=== PATIENT | female | born 1975 | race Two or more races ===

== ENCOUNTER 2024-07-13 18:48 | Emergency (ER) | payer SELFPAY ==
[~2024-07-13] VITALS: Ht 165.1 cm; Wt 70.3 kg
[2024-07-13] MEDS: HYDROcodone-ACET 5/325MG TAB PO ONE (19:26)
[2024-07-13 19:28] VITALS: TEMP 98.7
[2024-07-13] MEDS: KETOROLAC TROMETH 60MG/2ML VIAL IM ONE (19:51)
[2024-07-13 20:21] VITALS: BP 118/70; PULSE 83; RESP 16; O2SAT 98
[2024-07-13] MEDS ORDERED: IBUP-1456 PO (20:25)
[2024-07-13] MEDS ORDERED: METH-1181 PO (20:25)
== END 2024-07-13 20:44 | disposition home or self-care (01) ==
LOC: ER 18:48
DX: S16.1XXA Strain of muscle, fascia and tendon at neck level, initial encounter (principal); S46.812A Strain of other muscles, fascia and tendons at shoulder and upper arm level, left arm, initial encounter; S39.012A Strain of muscle, fascia and tendon of lower back, initial encounter; S96.812A Strain of other specified muscles and tendons at ankle and foot level, left foot, initial encounter; Y08.89XA Assault by other specified means, initial encounter; Y93.89 Activity, other specified; Y92.89 Other specified places as the place of occurrence of the external cause; Y99.8 Other external cause status
CPT/HCPCS: 72040; 72100; 73030; 73610; 96372; 99284; J1885

== ENCOUNTER 2025-05-19 17:04 | Emergency (ER) | payer MEDICAID, OTHER ==
[~2025-05-19] VITALS: Ht 162.6 cm; Wt 78.5 kg
[~2025-05-19 17:04] MED LIST: IBUP-1456 PO; METH-1181 PO
[2025-05-19 17:05] VITALS: BP 156/98; PULSE 80; RESP 20; TEMP 98; O2SAT 98
[2025-05-19] MEDS ORDERED: SODIUM CHLORIDE 0.9% 1,000 ML IV ONE (18:15)
[2025-05-19] MEDS ORDERED: diphenhdrAMINE HCL 50 MG/1 ML VL IV ONE (18:15)
[2025-05-19] MEDS ORDERED: PROCHLORPERAZINE EDISYLATE 5 MG/ML 2ML VIAL IV ONE (18:15)
[2025-05-19] MEDS ORDERED: ONDANSETRON HCL 4 MG/2 ML VIAL IV ONE (18:15)
[2025-05-19] MEDS ORDERED: KETOROLAC TROMETH 30 MG/ML 1ML VIAL IV ONE (18:15)
--- NOTE | 2025-05-19 18:47 | ED.PDOC ---
HPI (NEURO) HPI Comments 50y F who presents to the ED for chief complaint of headache. Pt states she has been having headache for the past 30 minutes. Pt states she has history of migraines and states it feels the same whenever she gets migraines in the past. Pt has also been having associated nasuea, dizziness and associated light sensitivity. Pt otherwise has noted BP of 156/98 with otherwise stable vitals. Pt is alert and oriented x 4. Not thunderclap in onset. Not worst headache of life. No focal numbness or weakness. No other complaints. Chief Complaint: Headache Time Seen by MD: 18:30 Reviewed Notes: Medications, Allergies Information Source: Patient, Spouse Mode of Arrival: Ambulatory Brought in by: spouse Past Medical History Past Medical History (Other): migraines Surgical History: Denies all surgeries PRODUCT DEVELOPMENT MANAGER History: No Pertinent PRODUCT DEVELOPMENT MANAGER History Family History Family History: Reviewed,noncontributory to illness Social History Smoker: Non-Smoker Alcohol: Denies ETOH Use Drugs: Denies Drug Use Lives In: Home Constitutional: denies: chills, diaphoresis, fatigue, fever, malaise, sweats, weakness, others EENTM: denies: blurred vision, double vision, ear bleeding, ear discharge, ear drainage, ear pain, ear ringing, eye pain, eye redness, hearing loss, mouth pain, mouth swelling, nasal discharge, nose bleeding, nose congestion, nose pain, photophobia, tearing, throat pain, throat swelling, voice changes, others Respiratory: denies: cough, hemoptysis, orthopnea, SOB at rest, shortness of breath, SOB with excertion, stridor, wheezing, others Cardiovascular: denies: chest pain, dizzy spells, diaphoresis, Dyspnea on exertion, edema, irregular heart beat, left arm pain, lightheadedness, palpitations, PND, syncope, others Gastrointestinal: reports: nausea, vomiting; denies: abdomen distended, abdominal pain, blood streaked bowels, constipated, diarrhea, dysphagia, difficulty swallowing, hematemesis, melena, poor appetite, poor fluid intake, rectal bleeding, rectal pain, others Genitourinary: denies: abnormal vagina bleeding, burning, dyspareunia, dysuria, flank pain, frequency, hematuria, incontinence, pain, , vagina discharge, urgency, others Neurological: reports: dizziness, headache; denies: fainting, left sided numbness, left sided weakness, numbness, paresthesia, pre-existing deficit, right sided numbness, right sided weakness, seizure, speech problems, tingling, tremors, weakness, others Musculoskeletal: denies: back pain, gout, joint pain, joint swelling, muscle pain, muscle stiffness, neck pain, others Integumetry: denies: bruises, change in color, change in hair/nails, dryness, laceration, lesions, lumps, rash, wounds, others Allergic/Immunocompromised: denies: Difficulty Healing, Frequent Infections, Hives, Itching, others Hematologic/Lymphatic: denies: anemia, blood clots, easy bleeding, easy bruising, swollen glands, others Endocrine: denies: excessive hunger, excessive sweating, excessive thirst, excessive urination, flushing, intolerance to cold, intolerance to heat, unexplained weight gain, unexplained weight loss, others Psychiatric: denies: anxiety, bipolar disorder, depression, hopeless, panic disorder, schizophrenia, sleepless, suicidal, others All Other Systems: Reviewed and Negative Physical Exam General Appearance: No Apparent Distress, Normal HEENT: Normal ENT Inspection, Pharynx Normal, TMs Normal Neck: Full Range of Motion, Non-Tender, Normal, Normal Inspection Respiratory: Chest Non-Tender, Lungs Clear, No Accessory Muscle Use, No Respiratory Distress, Normal Breath Sounds Cardiovascular: No Edema, No JVD, No Murmur, No Gallop, Normal Peripheral Pulses, Regular Rate/Rhythm Breast Exam: Deferred Gastrointestinal: No Organomegaly, Non Tender, No Pulsatile Mass, Normal Bowel Sounds, Soft Genitalia: Deferred Pelvic: Deferred Rectal: Deferred Extremities: No calf tenderness, Normal capillary refill, Normal inspection, Normal range of motion, Non-tender, No pedal edema Musculoskeletal : Apperance: Normal Neurologic: Alert, air support control officer II-XII nml as Tested, No Motor Deficits, Normal Affect, Normal Mood, No Sensory Deficits Cerebellar Function: Normal Reflexes: Normal Skin: Dry, Normal Color, Warm Lymphatic: No Adenopathy Was a procedure done? Was a procedure done?: No Differential Diagnosis (SZ) General Weakness: Anemia, Dehydration, Electrolyte imbalance, TIA, Vertigo: central, Vertigo: peripheral Headache: Migraine, Closed Head Injury, Intracerebral Hemorrhage, Subarachnoid Hemorrhage, Subdural Hemorrhage, Mass Lesion, Sinusitis, Trigeminal Neuralgia X-Ray, Labs, Meds, VS Vital Signs Date Time Temp Pulse Resp B/P (MAP) Pulse Ox O2 Delivery O2 Flow Rate FiO2 05/19/25 17:05 98.0 80 20 156/98 98 98.0 X-Ray, Labs, Meds, VS Comment Patient presents with a history of headache most likely related to benign etiology such as migraine with symptomatic control achieved in the emergency department. On history no high risk features such as AM temporal component, persistent nausea/vomiting, sudden thunderclap in onset, changes in vision, jaw claudication, seizure. Patient to be discharged home with symptomatic management, avoidance of headache triggers and close follow up with primary care provider for referral to neurology as indicated. Counseled patient to maintain headache journal to assist with identification of triggers. Reviewed supportive care and return precautions including, but not limited to fever > 100.4, severe headache, vision changes, PO intolerance. Patient is in agreement with the plan and all questions answered. Considered SAH, meningitis/encephalitis, stroke, space-occupying lesion, GCA, acute angle closure glaucoma, vascular dissection, CVT, IIH, PRES, carbon monoxide poisoning, _preeclampsia/eclampsia, but consider these to be less likely based on history/physical/evaluation as above. Time of 1ST Reevaluation: 19:30 Reevaluation 1ST: Unchanged Patient Education/Counseling: Diagnosis, Treatment Family Education/Counseling: Diagnosis, Treatment Departure 1 Departure Time of Disposition: 20:06 Impression: Primary Impression: Migraine Disposition: 01 HOME / SELF CARE / HOMELESS Condition: Stable Discharged With: Self Critical Care Note Critical Care Time?: Yes (30 min-critical care time only) Stability Stability form required: No Heart Score Heart Score: Heart Score Response (Comments) Value History N/A 0 EKG N/A 0 Age N/A 0 Risk Factors N/A 0 Troponin N/A 0 Total 0 I personally scribed for KEYUR YU MD ([email or web address]) on 05/19/25 at 18:47. Electronically submitted by Jaja Vivas ([facility]). KEYUR YU MD May 19, 2025 18:47
== END 2025-05-19 22:30 | disposition home or self-care (01) ==
LOC: ER 17:04
DX: G43.909 Migraine, unspecified, not intractable, without status migrainosus (principal)

== ENCOUNTER 2025-08-27 15:34 | Emergency (ER) | payer MEDICAID ==
[~2025-08-27] VITALS: Ht 167.6 cm; Wt 82.1 kg
--- NOTE | 2025-08-27 16:03 | ED.PDOC ---
TOOLING SUPERVISOR HPI Comments This is a 50 year old female presenting to the ED with chief complaint of vaginal bleeding. Patient reports that she has been experiencing heavy vaginal bleeding since last with associated large clots being passed. Patient relays that she has associated dizziness and chills today. Patient states she uses about 1 pad per hour of bleeding. Patient notes her LMP was at the end of April. Patient denies any N/V, abdominal pain, fever, chills, chest pain, or SOB. Chief Complaint: Vaginal Bleed Time Seen by MD: 16:01 Reviewed Notes: Nurses Notes, Medications, Allergies Allergies: Coded Allergies: NO KNOWN ALLERGIES (Unverified , 07/13/24) Home Meds Active Scripts Ibuprofen (Ibuprofen) 800 Mg Tab, 1 TAB PO TID PRN for 7 Days, #21 TAB 1 Refill Prov:IGNACIO BROWN 07/13/24 Methocarbamol (Methocarbamol) 500 Mg Tab, 500 MG PO BID PRN for 5 Days, #10 TAB Prov:IGNACIO BROWN 07/13/24 Information Source: Patient Mode of Arrival: Ambulatory Timing: Days Prehospital treatment: None Severity: Moderate Bleeding Quality: Bright Red, Clotted Onset Of Mass/Bleeding: Spontaneous Sexual Activity: Neither Last Consensual [place]: Unknown Control: None Associated Signs and Symptoms: Vaginal Bleeding Past Medical History PAST MEDICAL HISTORY: Denies Surgical History: Denies all surgeries PLASTICS ENGINEER History: No Pertinent PLASTICS ENGINEER History Family History Family History: Reviewed,noncontributory to illness Social History Smoker: Non-Smoker Alcohol: Denies ETOH Use Drugs: Denies Drug Use Lives In: Home Constitutional: denies: chills, diaphoresis, fatigue, fever, malaise, sweats, weakness, others EENTM: denies: blurred vision, double vision, ear bleeding, ear discharge, ear drainage, ear pain, ear ringing, eye pain, eye redness, hearing loss, mouth pain, mouth swelling, nasal discharge, nose bleeding, nose congestion, nose pain, photophobia, tearing, throat pain, throat swelling, voice changes, others Respiratory: denies: cough, hemoptysis, orthopnea, SOB at rest, shortness of breath, SOB with excertion, stridor, wheezing, others Cardiovascular: denies: chest pain, dizzy spells, diaphoresis, Dyspnea on exertion, edema, irregular heart beat, left arm pain, lightheadedness, palpitations, PND, syncope, others Gastrointestinal: denies: abdomen distended, abdominal pain, blood streaked bowels, constipated, diarrhea, dysphagia, difficulty swallowing, hematemesis, melena, nausea, poor appetite, poor fluid intake, rectal bleeding, rectal pain, vomiting, others Genitourinary: reports: abnormal vagina bleeding; denies: burning, dyspareunia, dysuria, flank pain, frequency, hematuria, incontinence, pain, , vagina discharge, urgency, others Neurological: reports: dizziness; denies: fainting, headache, left sided numbness, left sided weakness, numbness, paresthesia, pre-existing deficit, right sided numbness, right sided weakness, seizure, speech problems, tingling, tremors, weakness, others Musculoskeletal: denies: back pain, gout, joint pain, joint swelling, muscle pain, muscle stiffness, neck pain, others Integumetry: denies: bruises, change in color, change in hair/nails, dryness, laceration, lesions, lumps, rash, wounds, others Allergic/Immunocompromised: denies: Difficulty Healing, Frequent Infections, Hives, Itching, others Hematologic/Lymphatic: denies: anemia, blood clots, easy bleeding, easy bruising, swollen glands, others Endocrine: denies: excessive hunger, excessive sweating, excessive thirst, excessive urination, flushing, intolerance to cold, intolerance to heat, unexp lained weight gain, unexplained weight loss, others Psychiatric: denies: anxiety, bipolar disorder, depression, hopeless, panic disorder, schizophrenia, sleepless, suicidal, others All Other Systems: Reviewed and Negative Physical Exam General Appearance: No Apparent Distress, Normal HEENT: Normal ENT Inspection, Pharynx Normal, TMs Normal Neck: Full Range of Motion, Non-Tender, Normal, Normal Inspection Respiratory: Chest Non-Tender, Lungs Clear, No Accessory Muscle Use, No Respiratory Distress, Normal Breath Sounds Cardiovascular: No Edema, No JVD, No Murmur, No Gallop, Normal Peripheral Pulse s, Regular Rate/Rhythm Breast Exam: Deferred Gastrointestinal: No Organomegaly, Non Tender, No Pulsatile Mass, Normal Bowel Sounds, Soft Genitalia: Deferred Pelvic: Deferred Rectal: Deferred Extremities: No calf tenderness, Normal capillary refill, Normal inspection, Normal range of motion, Non-tender, No pedal edema Musculoskeletal : Apperance: Normal Neurologic: Alert, photostatic copy maker II-XII nml as Tested, No Motor Deficits, Normal Affect, Normal Mood, No Sensory Deficits Cerebellar Function: Normal Reflexes: Normal Skin: Dry, Normal Color, Warm Lymphatic: No Adenopathy Was a procedure done? Was a procedure done?: No Differential Diagnosis (PLASTICS ENGINEER) Vaginal Bleeding: Menorrhagia, Menstrual Bleeding X-Ray, Labs, Meds, VS Vital Signs Date Time Temp Pulse Resp B/P (MAP) Pulse Ox O2 Delivery O2 Flow Rate FiO2 08/27/25 15:36 97.3 89 16 131/107 96 97.3 X-Ray, Labs, Meds, VS Comment Patient no answer, presumed eloped Time of 1ST Reevaluation: 17:01 Reevaluation 1ST: Unchanged Patient Education/Counseling: Diagnosis, Treatment Family Education/Counseling: No Family Present Departure 1 Departure Time of Disposition: 17:46 Impression: Primary Impression: Dysmenorrhea Disposition: 07 LEFT AWOL/ELOPED Condition: Stable Critical Care Note Critical Care Time?: No Stability Stability form required: No Heart Score Heart Score: Heart Score Response (Comments) Value History N/A 0 EKG N/A 0 Age N/A 0 Risk Factors N/A 0 Troponin N/A 0 Total 0 I personally scribed for JONATHAN MCCALLUM ([email or web address]) on 08/27/25 at 16:03. Electronically submitted by Vincent Forman ([email or web address]). JONATHAN MCCALLUM Aug 27, 2025 16:03
[2025-08-27 18:52] LABS: Hematocrit 37.9 % (36.0-46.0); Hemoglobin 13.0 g/dL (12.2-16.2); Mean Corpuscular Hemoglobin 28.7 pg (28.0-32.0); Mean Corpuscular Volume 84.0 fL (80.0-100.0); Nucleated Red Blood Cells % 0.0 %
[2025-08-27 19:09] LABS: Chloride 106 mmol/L (98-107); Potassium 3.9 mmol/L (3.5-5.1); Sodium 142 mmol/L (136-145)
--- NOTE | 2025-08-27 19:09 | DVH ---
EXAM: US PELVIC HISTORY: vag bleed COMPARISON: None TECHNIQUE: Transabdominal and transvaginal imaging was utilized. Grayscale and color doppler evaluation. Images were stored in the patient's permanent medical record. FINDINGS: UTERUS: 9.2 x 4.9 x 6.5 cm. Endometrial stripe: 1.4 cm. Heterogeneous appearance of the uterus. Multiple incompletely characterized complex structures which may represent multiple uterine fibroids with evidence of posterior acoustic shadowing with the largest measuring up to 1.8 cm of the uterine fundus. Endometrium appears thickened with multiple anechoic cystic structures measuring up to 0.4 cm. RIGHT OVARY: 3.2 x 1.9 x 2.1 cm.Normal vascularity. Right ovarian paraovarian cysts measuring up to 0.9 cm. LEFT OVARY: 3.7 x 2.1 x 3.7 cm. Normal vascularity. No suspicious masses or cysts. OTHER: No free fluid is identified. IMPRESSION: 1. Heterogeneous appearance of the uterus with multiple suspected fibroids. 2. Thickened endometrium with multiple anechoic cystic structures measuring up to 0.4 cm. 3. Consider further evaluation with MRI of the pelvis.
[2025-08-27 19:10] LABS: Anion Gap 9 (5-15); Carbon Dioxide 27 mmol/L (20-31)
[2025-08-27 19:11] LABS: Calcium 9.3 mg/dL (8.7-10.4)
[2025-08-27 19:15] LABS: BUN/Creatinine Ratio 11.5 (10.0-20.0); Blood Urea Nitrogen 9 mg/dL (9-23); Glucose 91 mg/dL (74-106)
[2025-08-27] MEDS: KETOROLAC TROMETH 30 MG/ML 1ML VIAL IM ONE (21:55)
[2025-08-27 22:55] VITALS: BP 138/76; PULSE 89; RESP 17; TEMP 98.4; O2SAT 99
== END 2025-08-27 22:51 | disposition home or self-care (01) ==
LOC: ER 15:34
DX: N94.6 Dysmenorrhea, unspecified (principal); Z79.899 Other long term (current) drug therapy
CPT/HCPCS: 36415; 76830; 76856; 80048; 85025; 86850; 86900; 86901; 96372; 99285; J1885